=== PATIENT | female | born 1995 | race Caucasian/White ===

== ENCOUNTER → 2018-05-23 | Outpatient (REF) | payer OTHER | LOC: M SFHCLERA 16:10 | DX: J02.9 Acute pharyngitis, unspecified (principal) ==

== ENCOUNTER 2018-07-18 22:21 | Outpatient (CLI) | payer OTHER | END 2018-07-18 23:34 | disposition home or self-care (01) | LOC: M LDO 22:21 | DX: O47.1 False labor at or after 37 completed weeks of gestation (principal); Z3A.40 40 weeks gestation of pregnancy | CPT/HCPCS: 59025 ==

== ENCOUNTER 2018-07-20 19:11 | Inpatient (IN) | payer OTHER ==
[2018-07-20 20:23] LABS: HEMATOCRIT 35.3 % (36.0-47.0); HEMOGLOBIN 11.6 g/dl (12.0-15.5); MEAN CORPUSCULAR HEMOGLOBIN 28.2 pg (27.0-33.0); MEAN CORPUSCULAR HGB CONC 32.9 g/dl (32.0-36.5); MEAN CORPUSCULAR VOLUME 85.7 fl (80.0-96.0); PLATELET COUNT, AUTOMATED 181 10^3/uL (150-450); RED BLOOD COUNT 4.12 10^6/uL (4.00-5.40); RED CELL DISTRIBUTION WIDTH 12.8 % (11.5-14.5); WHITE BLOOD COUNT 7.8 10^3/uL (4.0-10.0)
[2018-07-20] MEDS ORDERED: FENTANYL 2MCG/ML ROPIVACAINE 0.2% IN 0.9% NACL 200ML IVBAG As Ordered (21:04)
[2018-07-20] MEDS ORDERED: LACTATED RINGER'S 1000 ML IV (21:40)
[2018-07-20] MEDS ORDERED: FENTANYL/ROPIVACAINE/NACL BAG 200 ML EPIDURAL (21:40)
[2018-07-20] MEDS ORDERED: REFRIGERATOR IV KEYS XX (21:40)
[2018-07-20] MEDS ORDERED: EPIDURAL COMMENT XX (21:40)
[2018-07-20] MEDS ORDERED: NALOXONE INJ 0.4 MG/1 ML VIAL (J2310) IV (21:40)
[2018-07-20] MEDS ORDERED: EPIDURAL/PCA KEYS XX (21:40)
[2018-07-20] MEDS ORDERED: ONDANSETRON 4MG/2ML VIAL (J2405) IV (21:40)
[2018-07-20] MEDS ORDERED: ePHEDrine SULFATE 25 MG/5 ML(5MG/ML) SYRINGE IV (21:40)
[2018-07-20] MEDS ORDERED: diphenhydrAMINE INJ 50MG/ML VIAL (J1200) IV (21:40)
[2018-07-20] MEDS ORDERED: ePHEDrine SULFATE 25 MG/5 ML(5MG/ML) SYRINGE As Ordered (22:15)
[2018-07-20] MEDS: LACTATED RINGER'S 1000 ML IV (22:31)
[2018-07-20] MEDS: LR 1,000 ML IV (22:32)
[2018-07-21] MEDS ORDERED: OXYTOCIN 30 UNITS IN 0.9% NaCl 500ML IV BAG (J2590) As Ordered (00:20)
[2018-07-21] MEDS: OXYTOCIN DRIP 30 UNITS in APPROPRIATE DILUENT 1 EA IV (01:56)
[2018-07-21] MEDS ORDERED: METOCLOPRAMIDE INJ 10MG/2ML VIAL (J2765) IV (02:15)
[2018-07-21] MEDS ORDERED: RHOGAM 300 MCG (1500 IU) INJ (J2790) IM (02:15)
[2018-07-21] MEDS ORDERED: DIBUCAINE 1% OINTMENT 30GM TOP (02:15)
[2018-07-21] MEDS ORDERED: MEASLES,MUMPS,RUBELLA VACCINE INJ (MMR-II) (90707) SC (02:15)
[2018-07-21] MEDS: PRENATAL VITAMINS CHEWABLE TABLET PO (09:36)
[2018-07-21] MEDS: DOCUSATE SODIUM 100 MG CAP PO ×2 (09:36→21:19)
[2018-07-21] MEDS: IBUPROFEN 800 MG TAB PO ×2 (09:37→19:57)
[2018-07-21] MEDS: ACETAMINOPHEN TAB 650MG DOSE (2X325MG) PO (14:28)
[2018-07-22] MEDS: PRENATAL VITAMINS CHEWABLE TABLET PO (08:30)
[2018-07-22] MEDS: DOCUSATE SODIUM 100 MG CAP PO (08:30)
== END 2018-07-22 12:30 | disposition home or self-care (01) | DRG 807 ==
LOC: M LDO 19:11 → M OBS 07-21 05:30 → M LDI 19:54
PROVIDERS: Obstetrics & Gynecology
PROC: 10E0XZZ Delivery of Products of Conception, External Approach (ICD-10-PCS; principal; 2018-07-21)
DX: O99.02 Anemia complicating childbirth (principal); Z37.0 Single live birth; D64.9 Anemia, unspecified; Z3A.40 40 weeks gestation of pregnancy; O69.81X0 Labor and delivery complicated by cord around neck, without compression, not applicable or unspecified